=== PATIENT | male | born 1975 | race Two or more races ===

== ENCOUNTER 2016-11-18 01:48 | Emergency (ER) | payer OTHER ==
[~2016-11-18] VITALS: Ht 180.3 cm; Wt 97.5 kg
[2016-11-18] MEDS ORDERED: HALOPERIDOL LACTATE 5 MG/1 ML VIAL IM ONE (02:00)
[2016-11-18] MEDS ORDERED: ONDANSETRON 4 MG/2 ML VIAL IV ONE (02:00)
[2016-11-18] MEDS ORDERED: IV NORMAL SALINE 1000 ML BAG IV ONE (02:00)
[2016-11-18] MEDS ORDERED: HALOPERIDOL LACTATE 5 MG/1 ML VIAL ONE (02:06)
--- NOTE | 2016-11-18 02:14 | NUR ---
Patient is verbally abusive, aggressive towards staff. Patient's called, on her way to this ER.
--- NOTE | 2016-11-18 02:35 | NUR ---
Patient does not wish to proceed with medical care recommended by Dr. Wright. Patient given information related to possible complications, up to and including , which could occur as a result of leaving the hospital at this time. Patient verbalizes understanding of risks involved due to leaving against medical advice. Patient and spouse signed AMA form.
== END 2016-11-18 02:41 | disposition left against medical advice (07) ==
LOC: ER 01:56
DX: F10.129 Alcohol abuse with intoxication, unspecified (principal)
CPT/HCPCS: A4663; J1630